=== PATIENT | male | born 2000 | race Caucasian/White ===

== ENCOUNTER 2022-10-29 05:33 | Observation (INO) | payer OTHER, SELFPAY ==
[2022-10-29] VITALS (7 sets, daily range): BP systolic 110–131; BP diastolic 68–75; PULSE 77–88; RESP 16; TEMP 36.7–37.1; O2SAT 96–98; BMI 25.1
--- NOTE | 2022-10-29 06:04 | PC.NURSE ---
Patient had [place] teeth removed september 30. 4 days ago started with pain and swelling to right side of dolores.
--- NOTE | 2022-10-29 06:25 | ED.DENTAL1 ---
HPI - Dental/Oral General Chief complaint: Dental/Oral Stated complaint: DENTAL PAIN Time Seen by Provider: 10/29/22 06:25 Source: patient Mode of arrival: walk-in Limitations: no limitations History of Present Illness HPI Narrative: removal multiple wisdom teeth beginning of September. Discharged home on Amoxicillin. States everything went well and he healed and was doing well. 3 days ago developed pain right lower molar area. Seen at Urgent care 3 days ago and started on Clindamycin. Continues to have pain and throbbing of his face and swelling. low grade fever last PM. Throbbing pain that he is able to receive some relief with Motrin Onset (ago): day(s) Severity: moderate Relieving factors: NSAIDs Exacerbating factors: chewing Associated symptoms: fever Related Data Home Medications Medication Instructions Recorded Confirmed amoxicillin 500 mg capsule mg 10/29/22 chlorhexidine gluconate 0.12 % 10/29/22 mouthwash clindamycin HCl 300 mg capsule mg 10/29/22 ibuprofen 800 mg tablet mg 10/29/22 Allergies Allergy/AdvReac Type Severity Reaction Status Date / Time cefaclor [From [facility]] Allergy Intermediate Rash Verified 10/29/22 05:56 Review of Systems ROS Status of ROS 10 or more systems reviewed and unremarkable except as noted in history and below Exam Constitutional: Vital Signs - 24 hr 10/29/22 05:48 Temperature 98.7 F Pulse Rate [Monito r] 88 Respiratory Rate 16 Blood Pressure [Ri ght Arm] 122/73 H Pulse Oximetry 96 Oxygen Delivery Me thod Room Air Common normals: no apparent distress General appearance: cooperative HENMT: Common normals: normocephalic Other: swelling right face and about right lower pos. molar Eye: Common normals: PERRL, EOMs intact bilaterally and conjunctivae normal Neck & C-Spine: Common normals: full ROM and no lymphadenopathy Chest: Common normals: inspection of chest normal Respiratory: Common normals: normal respiratory effort and clear to auscultation bilaterally Cardio: Common normals: regular rate and regular rhythm GI: Common normals: Normal to inspection, nondistended, normoactive bowel sounds present Extremity: Common normals: normal to inspection and no joint enlargement Neuro: Common normals: oriented x3, moves all extremities and no focal motor deficits Psych: Common normals: mental status grossly normal Skin: Common normals: no rashes or lesions noted and skin turgor normal Course Vital Signs Vital signs: Vital Signs Temperature 98.7 F 10/29/22 05:48 Pulse Rate 88 10/29/22 05:48 Respiratory Rate 16 10/29/22 05:48 Blood Pressure 122/73 H 10/29/22 05:48 Pulse Oximetry 96 10/29/22 05:48 Oxygen Delivery Method Room Air 10/29/22 05:48 Temperature 98.7 F 10/29/22 05:48 Pulse Rate 88 10/29/22 05:48 Respiratory Rate 16 10/29/22 05:48 Blood Pressure 122/73 H 10/29/22 05:48 Pulse Oximetry 96 10/29/22 05:48 Oxygen Delivery Method Room Air 10/29/22 05:48 MDM - Dental/Oral MDM Narrative Medical decision making narrative: patient arrives with dental abscess that is not improving after 3 days of oral clindamycin. he has swelling and throbbing pain of his right face. IV established along with labs and fluids. Unasyn ordered. care transferred to Dr Summers at [facility] of shift Discharge Plan Discharge Chief Complaint: Dental/Oral Clinical Impression: Abscess, dental Prescriptions / Home Meds: No Action amoxicillin 500 mg capsule clindamycin HCl 300 mg capsule ibuprofen 800 mg tablet chlorhexidine gluconate 0.12 % mouthwash Referrals: CHRISTINA FARMER [Primary Care Provider] - 1 week
--- NOTE | 2022-10-29 07:09 | CT_ITS ---
The [address] [address] Patient Name: GLORIA Charlette MORGAN MRN: [facility]:[id number] date: 2000 Sex: M Assigned Patient Location: ER Current Patient Location: ER Accession/Order Number: [id number] Exam Date: 10/29/2022 07:38 Report Date: 10/29/2022 07:59 At the request of: JENIFFER MATHIS Procedure: CT soft tissue neck w con EXAM: CT scan of the neck using 98 mL of IV iodinated contrast. Dose reduction technique used: Automated exposure control and/or adjustment of the mA and/or kV according to patient size and/or use of iterative reconstruction technique. REASON FOR EXAM: Right jaw swelling, dental abscess COMPARISON: None FINDINGS: Changes of recent bilateral posterior mandibular and maxillary molar extraction. Fluid collection measuring 2.4 x 0.8 cm in the soft tissues immediately superficial to the right mandible abutting the to the extraction site. Surrounding soft tissue swelling. No other fluid collection. No cervical lymphadenopathy. No abnormal soft tissue masses. Patent vascular structures in the neck. Remainder unremarkable. IMPRESSION: Small abscess and surrounding soft tissue infection adjacent to the right mandibular tooth extraction site. Electronically authenticated by: REBECCA CHAPMAN Date: 10/29/2022 07:59
[2022-10-29 07:14] LABS: Basophils Percent Auto 0.2 % (0.2-2.0); Eosinophils Absolute Auto 0.1 10^3/uL (0.0-0.7); Eosinophils Percent Auto 0.4 % (0.9-7.0); Hemoglobin 14.5 g/dL (14.0-18.0); Immature Granulocytes Abs Auto 0.04 10^3/uL (0.00-0.03); Immature Granulocytes Pct Auto 0.3 % (0.0-0.5); Lymphocytes Percent Auto 8.1 % (20.5-60.0); Mean Corpuscular HGB Conc 33.7 g/dL (29.9-35.2); Mean Corpuscular Hemoglobin 29.5 pg (25.9-34.0); Mean Corpuscular Volume 87.6 fL (80.0-94.0); Mean Platelet Volume 8.5 fL (9.5-13.5); Monocytes Absolute Auto 1.5 10^3/uL (0.3-0.8); Monocytes Percent Auto 12.1 % (1.7-12.0); Neutrophils Absolute Auto 9.7 10^3/uL (1.4-6.5); Neutrophils Percent Auto 78.9 % (43.0-75.0); Platelet Count 245 10^3/uL (150-450); Red Blood Count 4.91 10^6/uL (4.70-6.10); White Blood Count 12.2 10^3/uL (4.0-11.0)
[2022-10-29] MEDS: 0.9 % SODIUM CHLORIDE 1,000 ML 100 ML IV (07:19)
[2022-10-29 07:32] LABS: Alanine Aminotransferase 27 U/L (16-63); Albumin Level 3.6 g/dL (3.4-5.0); Alkaline Phosphatase 89 U/L (46-116); Anion Gap 13.2; Aspartate Amino Transferase 14 U/L (15-37); BUN Creatinine Ratio 16.7; Bilirubin Total 0.8 mg/dL (0.2-1.0); Calcium 8.9 mg/dL (8.5-10.1); Carbon Dioxide 26.9 mmol/L (21.0-32.0); Chloride 102 mmol/L (98-107); Estimated GFR (African America >60 (>=60); Estimated GFR (Non-African Ame >60 (>=60); Globulin 3.6 g/dL; Glucose 103 mg/dL (74-106); Potassium 4.1 mmol/L (3.5-5.1); Sodium 138 mmol/L (136-145); Total Protein 7.2 g/dL (6.4-8.2)
[2022-10-29] MEDS: AMPICILLIN SODIUM/SULBACTAM NA 3 GM in 0.9 % SODIUM CHLORIDE 100 ML IV ×3 (07:33→21:17)
[2022-10-29 07:34] LABS: Lactate/Lactic Acid 0.9 mmol/L (0.4-2.0)
--- NOTE | 2022-10-29 09:06 | ED_ITS ---
HPI - General Adult General Chief complaint: Dental/Oral Stated complaint: DENTAL PAIN Time Seen by Provider: 10/29/22 06:25 Source: patient Mode of arrival: walk-in Limitations: no limitations Related Data Home Medications Medication Instructions Recorded Confirmed chlorhexidine gluconate 0.12 % 10/29/22 mouthwash ibuprofen 800 mg tablet 800 mg PO Q8H PRN fever or pain 10/29/22 10/29/22 Previous Rx's Medication Instructions Recorded amoxicillin 500 mg capsule 1,000 mg PO BID #0 caps 10/30/22 amoxicillin 875 mg-potassium 1 tab PO BID take with the 10/30/22 clavulanate 125 mg tablet amoxicillin 2 tabs twice a day #20 tabs Allergies Allergy/AdvReac Type Severity Reaction Status Date / Time cefaclor [From [facility]] Allergy Intermediate Rash Verified 10/29/22 05:56 [facility] Medical History (Updated 11/03/22 @ 00:00 by ) Surgical History (Updated 10/29/22 @ 14:45 by Haley Samuel) Exam Constitutional Vital Signs - 24 hr 10/29/22 05:48 Temperature 98.7 F Pulse Rate [Monitor] 88 Respiratory Rate 16 Blood Pressure [Right Arm] 122/73 H Pulse Oximetry 96 Oxygen Delivery Method Room Air Course Reevaluation(s) Reevaluation #1: Signed out to me by Dr. Mathis awaiting CT scan results. Patient seen and evaluated by me. Patient had dental extractions september. He to one course of amoxicillin postoperatively. He was doing well and on developed swelling to his right mandible. Patient went to the urgent care and started taking clindamycin he has taken 5 doses of clindamycin 300 mg and today the facial swelling is much worse. Patient denies any difficulty swallowing. He was started on Unasyn per Dr. Mathis awaiting neck soft tissue CT. Patient was discussed with Dr. Rincon who will obs the pt continuous IV antibiotics as the patient has failed outpatient treatment. Vital Signs Vital signs: Vital Signs Temperature 98.7 F 10/29/22 05:48 Pulse Rate 88 10/29/22 05:48 Respiratory Rate 16 10/29/22 05:48 Blood Pressure 122/73 H 10/29/22 05:48 Pulse Oximetry 96 10/29/22 05:48 Oxygen Delivery Method Room Air 10/29/22 05:48 Temperature 98.1 F 10/30/22 04:22 Pulse Rate 69 10/30/22 04:22 Respiratory Rate 16 10/30/22 04:22 Blood Pressure 106/63 10/30/22 04:22 Pulse Oximetry 96 10/30/22 04:22 Oxygen Delivery Method Room Air 10/30/22 04:22 Medical Decision Making Lab Data Labs: Lab Results 10/29/22 Range/Units 07:05 WBC 12.2 H (4.0-11.0) 10^3/uL RBC 4.91 (4.70-6.10) 10^6/uL Hgb 14.5 (14.0-18.0) g/dL Hct 43.0 (42.0-54.0) % MCV 87.6 (80.0-94.0) fL MCH 29.5 (25.9-34.0) pg MCHC 33.7 (29.9-35.2) g/dL RDW 12.0 (11.0-15.0) % Plt Count 245 (150-450) 10^3/uL MPV 8.5 L (9.5-13.5) fL Neut % (Auto) 78.9 H (43.0-75.0) % Lymph % (Auto) 8.1 L (20.5-60.0) % [place] % (Auto) 12.1 H (1.7-12.0) % Eos % (Auto) 0.4 L (0.9-7.0) % Baso % (Auto) 0.2 (0.2-2.0) % Neut # (Auto) 9.7 H (1.4-6.5) 10^3/uL Lymph # (Auto) 1.0 L (1.2-3.8) 10^3/uL [place] # (Auto) 1.5 H (0.3-0.8) 10^3/uL Eos # (Auto) 0.1 (0.0-0.7) 10^3/uL Baso # (Auto) 0.0 (0.0-0.1) 10^3/uL Sodium 138 (136-145) mmol/L Potassium 4.1 (3.5-5.1) mmol/L Chloride 102 (98-107) mmol/L Carbon Dioxide 26.9 (21.0-32.0) mmol/L Anion Gap 13.2 BUN 17.0 (7.0-18.0) mg/dL Creatinine 1.02 (0.70-1.30) mg/dL Est GFR ( Amer) >60 (>=60) Est GFR (Non-Af Amer) >60 (>=60) BUN/Creatinine Ratio 16.7 Glucose 103 (74-106) mg/dL Lactate 0.9 (0.4-2.0) mmol/L Calcium 8.9 (8.5-10.1) mg/dL Total Bilirubin 0.8 (0.2-1.0) mg/dL AST 14 L (15-37) U/L ALT 27 (16-63) U/L Total Protein 7.2 (6.4-8.2) g/dL Albumin 3.6 (3.4-5.0) g/dL Globulin 3.6 g/dL Albumin/Globulin Ratio 1.[address] neck soft tissue: My impression: Patient Name: GLORIA Charlette MORGAN MRN: [id number] date: 2000 Sex: M Assigned Patient Location: ER Current Patient Location: Accession/Order Number: [id number] Exam Date: 10/29/2022 07:38 Report Date: 10/29/2022 07:59 At the request of: JENIFFER MATHIS Procedure: CT soft tissue neck w con EXAM: CT scan of the neck using 98 mL of IV iodinated contrast. Dose reduction technique used: Automated exposure control and/or adjustment of the mA and/or kV according to patient size and/or use of iterative reconstruction technique. REASON FOR EXAM: Right jaw swelling, dental abscess COMPARISON: None FINDINGS: Changes of recent bilateral posterior mandibular and maxillary molar extraction. Fluid collection measuring 2.4 x 0.8 cm in the soft tissues immediately superficial to the right mandible abutting the to the extraction site. Surrounding soft tissue swelling. No other fluid collection. No cervical lymphadenopathy. No abnormal soft tissue masses. Patent vascular structures in the neck. Remainder unremarkable. IMPRESSION: Small abscess and surrounding soft tissue infection adjacent to the right mandibular tooth extraction site. Electronically authenticated by: REBECCA CHAPMAN Date: 10/29/2022 07:59 Discharge Plan Discharge Chief Complaint: Dental/Oral Clinical Impression: Abscess, dental Patient Disposition: Admitted as Observation Time of Disposition Decision: 09:11 Condition: Good Discharge Date/Time: 10/29/22 10:35
[2022-10-29 14:28] LABS: Lactate/Lactic Acid 1.4 mmol/L (0.4-2.0)
[2022-10-29] MEDS: KETOROLAC TROMETHAMINE 30 MG/ML VIAL IVP ×2 (15:08→20:34)
--- NOTE | 2022-10-29 15:55 | PM.HP ---
H&P: HPI History of Present Illness Chief complaint: DENTAL PAIN Narrative: Patient admitted with increasing swelling of his jaw. Has been treated with amoxicillin and clindamycin without success. CT scan confirms small abscess. Not drainable on evaluation by the emergency staff. Admit for IV antibiotics. If improved tomorrow possible discharge. Has an appointment in 2 days with his dentist to remove the tooth Review of Systems ROS Constitutional Denies: fever or chills Ears, nose, mouth, and throat Reports: mouth pain; Denies: throat swelling, difficulty swallowing or hoarseness Respiratory Denies: shortness of breath, cough or wheezing Gastrointestinal Denies: abdominal pain Neurological Denies: headache PFSH PFSH Medical History (Updated 10/29/22 @ 15:58 by Naren Rincon MD) Surgical History (Updated 10/29/22 @ 14:45 by Haley Samuel) Meds Home Medications and Allergies Home Medications Medication Instructions Recorded Confirmed Type amoxicillin 500 mg capsule 500 mg PO Q8H 10/29/22 10/29/22 History chlorhexidine gluconate 0.12 % 10/29/22 History mouthwash clindamycin HCl 300 mg capsule 300 mg PO Q8H 10/29/22 10/29/22 History ibuprofen 800 mg tablet 800 mg PO Q8H PRN fever or pain 10/29/22 10/29/22 History Allergies Allergy/AdvReac Type Severity Reaction Status Date / Time cefaclor [From [facility]] Allergy Intermediate Rash Verified 10/29/22 05:56 Exam Constitutional Vital Signs - 24 hr 10/29/22 05:48 10/29/22 11:30 10/29/22 11:36 Temperature 98.7 F 98.6 F Pulse Rate Pulse Rate [Monitor] 88 83 Respiratory Rate 16 16 Blood Pressure [Right Arm] 122/73 H 131/75 H Pulse Oximetry 96 98 98 Oxygen Delivery Method Room Air Room Air Room Air 10/29/22 11:36 10/29/22 14:00 Temperature 98.0 F Pulse Rate 77 Pulse Rate [Monitor] Respiratory Rate 16 16 Blood Pressure [Right Arm] 118/74 Pulse Oximetry 98 Oxygen Delivery Method Room Air [facility] Mouth: oral and palatal mucosa not normal (Swelling to right side of jaw.) Respiratory Common normals: normal respiratory effort and no retractions Cardio Common normals: regular rate and regular rhythm Neuro Common normals: oriented x3 Results Labs Labs: Short CBC 10/29/22 Range/Units 07:05 WBC 12.2 H (4.0-11.0) 10^3/uL Hgb 14.5 (14.0-18.0) g/dL Hct 43.0 (42.0-54.0) % Plt Count 245 (150-450) 10^3/uL BMP 10/29/22 07:05 Sodium 138 Potassium 4.1 Chloride 102 Carbon Dioxide 26.9 BUN 17.0 Creatinine 1.02 Glucose 103 Calcium 8.9 Liver Function 10/29/22 Range/Units 07:05 Total Bilirubin 0.8 (0.2-1.0) mg/dL AST 14 L (15-37) U/L ALT 27 (16-63) U/L Albumin 3.6 (3.4-5.0) g/dL Assessment and Plan Assessment and Plan (1) Dental abscess: Plan IV antibiotics overnight. Repeat labs in AM. Blood cultures for fever.
[2022-10-29] MEDS: L. ACIDOPHILUS/L.BULGARICUS 1 PACKET GRAN.PACK PO (17:59)
--- NOTE | 2022-10-29 22:21 | PC.NURSE ---
fresh ice water provided.
[2022-10-30] MEDS: KETOROLAC TROMETHAMINE 30 MG/ML VIAL IVP ×2 (03:26→09:43)
[2022-10-30] MEDS: AMPICILLIN SODIUM/SULBACTAM NA 3 GM in 0.9 % SODIUM CHLORIDE 100 ML IV ×2 (03:26→09:44)
--- NOTE | 2022-10-30 03:33 | PC.NURSE ---
Rt facial abscess noted with decrease swelling, and temp WNL.
[2022-10-30 04:22] VITALS: BP 106/63; PULSE 69; RESP 16; TEMP 36.7; O2SAT 96
[2022-10-30 04:42] LABS: Basophils Percent Auto 0.6 % (0.2-2.0); Eosinophils Absolute Auto 0.3 10^3/uL (0.0-0.7); Eosinophils Percent Auto 3.6 % (0.9-7.0); Hematocrit 39.8 % (42.0-54.0); Hemoglobin 13.5 g/dL (14.0-18.0); Immature Granulocytes Abs Auto 0.02 10^3/uL (0.00-0.03); Immature Granulocytes Pct Auto 0.3 % (0.0-0.5); Lymphocytes Absolute Auto 1.1 10^3/uL (1.2-3.8); Mean Corpuscular HGB Conc 33.9 g/dL (29.9-35.2); Mean Corpuscular Hemoglobin 30.1 pg (25.9-34.0); Mean Corpuscular Volume 88.6 fL (80.0-94.0); Mean Platelet Volume 8.7 fL (9.5-13.5); Monocytes Absolute Auto 0.7 10^3/uL (0.3-0.8); Monocytes Percent Auto 9.7 % (1.7-12.0); Neutrophils Absolute Auto 5.1 10^3/uL (1.4-6.5); Neutrophils Percent Auto 70.8 % (43.0-75.0); Platelet Count 237 10^3/uL (150-450); Red Blood Count 4.49 10^6/uL (4.70-6.10); Red Cell Distribution Width 12.1 % (11.0-15.0); White Blood Count 7.2 10^3/uL (4.0-11.0)
[2022-10-30 04:52] LABS: Alanine Aminotransferase 24 U/L (16-63); Albumin Globulin Ratio 0.9; Albumin Level 2.8 g/dL (3.4-5.0); Alkaline Phosphatase 75 U/L (46-116); Anion Gap 9.1; Aspartate Amino Transferase 19 U/L (15-37); BUN Creatinine Ratio 17.8; Bilirubin Total 0.2 mg/dL (0.2-1.0); Calcium 8.5 mg/dL (8.5-10.1); Carbon Dioxide 27.8 mmol/L (21.0-32.0); Chloride 102 mmol/L (98-107); Estimated GFR (African America >60 (>=60); Estimated GFR (Non-African Ame >60 (>=60); Globulin 3.2 g/dL; Glucose 157 mg/dL (74-106); Potassium 3.9 mmol/L (3.5-5.1); Sodium 135 mmol/L (136-145)
[2022-10-30] MEDS: L. ACIDOPHILUS/L.BULGARICUS 1 PACKET GRAN.PACK PO (09:44)
--- NOTE | 2022-10-30 09:55 | PM.DS1 ---
DS: Providers Provider Date of admission: 10/29/22 11:07 Primary care physician: CHRISTINA FARMER Consults: 10/29/22 Consult to Director Of Labor And Delivery Routine DS: Diagnosis Discharge Diagnosis (1) Dental abscess: Assessment and plan: Right-sided jaw abscess-we will follow-up with commissary manager tomorrow for possible drainage DS: Summary Hospital Course Hospital Course: Patient was admitted with failed outpatient treatment of oral-jaw abscess. Initially treated with amoxicillin 500 3 times daily. Patient became worse and presented to urgent care with a change to clindamycin. Over the next 36 to 48 hours patient again continued to deteriorate. With increasing swelling and pain. ER evaluations for 3 cm jaw abscess. Right-sided. Treated with IV antibiotics to be Unasyn. Tolerated the Unasyn well. White blood cell count is returned to normal after being elevated on admission. Pain and swelling is improving. At this point we will discharge patient to home on high-dose Augmentin. Follow-up with oral surgeon tomorrow. Status at Discharge Functional status at discharge: independent ambulation Overall status at discharge: patient is progressing back to baseline Time Spent with Patient Time attestation: Total time spent providing and/or coordinating discharge services: Exam Constitutional Vital Signs - 24 hr 10/29/22 11:30 10/29/22 11:36 10/29/22 11:36 Temperature 98.6 F Pulse Rate Pulse Rate [Monitor] 83 Respiratory Rate 16 16 Blood Pressure [Right Arm] 131/75 H Pulse Oximetry 98 98 Oxygen Delivery Method Room Air Room Air 10/29/22 14:00 10/29/22 16:03 10/29/22 19:40 Temperature 98.0 F Pulse Rate 77 Pulse Rate [Monitor] Respiratory Rate 16 Blood Pressure [Right Arm] 118/74 Pulse Oximetry 98 98 98 Oxygen Delivery Method Room Air Room Air Room Air 10/29/22 21:10 10/30/22 04:22 Temperature 98.0 F 98.1 F Pulse Rate 84 69 Pulse Rate [Monitor] Respiratory Rate 16 16 Blood Pressure [Right Arm] 110/68 106/63 Pulse Oximetry 96 96 Oxygen Delivery Method Room Air Room Air [facility] Common normals: normocephalic (Right-sided upper and lower jaw swelling. Some tenderness down into neck) Head and scalp: normal to inspection Respiratory Common normals: normal respiratory effort and no retractions Cardio Palpation: normal PMI Rate: regular rate Rhythm: regular rhythm DS: Data Data Completed and Pending Labs on day of discharge: Labs from last 24 hours 10/30/22 10/29/22 04:08 13:52 WBC 7.2 RBC 4.49 L Hgb 13.5 L Hct 39.8 L MCV 88.6 MCH 30.1 MCHC 33.9 RDW 12.1 Plt Count 237 MPV 8.7 L Neut % (Auto) 70.8 Lymph % (Auto) 15.0 L [place] % (Auto) 9.7 Eos % (Auto) 3.6 Baso % (Auto) 0.6 Neut # (Auto) 5.1 Lymph # (Auto) 1.1 L [place] # (Auto) 0.7 Eos # (Auto) 0.3 Baso # (Auto) 0.0 Sodium 135 L Potassium 3.9 Chloride 102 Carbon Dioxide 27.8 Anion Gap 9.1 BUN 18.0 Creatinine 1.01 Est GFR ( Amer) >60 Est GFR (Non-Af Amer) >60 BUN/Creatinine Ratio 17.8 Glucose 157 H Lactate 1.4 Calcium 8.5 Total Bilirubin 0.2 AST 19 ALT 24 Total Protein 6.0 L Albumin 2.8 L Globulin 3.2 Albumin/Globulin Ratio 0.9 Discharge Plan Discharge Disposition: Home, Self-Care Condition: Good Discharge Medications: New amoxicillin-pot clavulanate 875-125 mg tablet 1 tab PO BID Qty: 20 0RF Rx Instructions: take with the amoxicillin 2 tabs twice a day Continued ibuprofen 800 mg tablet 800 mg PO Q8H PRN (Reason: fever or pain) chlorhexidine gluconate 0.12 % mouthwash Changed amoxicillin 500 mg capsule 1,000 mg PO BID Qty: 0 0RF Discontinued clindamycin HCl 300 mg capsule 300 mg PO Q8H Activity: increase activity as tolerated Diet: advance to your usual diet Patient Instructions: Ibuprofen (By mouth), Amoxicillin/Clavulanate Potassium (By mouth), Amoxicillin (By mouth), Dental Abscess (ED) Forms: Portal Instructions Follow Up Appointments: Oral surgeon Monday keep appointment Discharge Date/Time: 10/30/22 10:57
--- NOTE | 2022-10-31 16:19 | CM.DCFOLLOWU ---
Person spoke with: patient How are you feeling? good How is your pain? less pain Did you understand your discharge instructions? yes Do you have any questions about your discharge instructions? no Were you given any prescriptions at discharge? yes Were you able to get your prescriptions filled? yes Do you understand how to take your medications as ordered? yes Do you have any questions about your follow up appointment and do you plan to keep your follow up appointment? yes Is there anything else that you would like to discuss? no Questions/Comments/Concerns/Other:
== END 2022-10-30 10:57 | disposition home or self-care (01) ==
LOC: ER 09:11 → MS 11:09
PROVIDERS: Admitting Provider Family Medicine; Emergency Provider Internal Medicine; PCP Family Medicine; Visit Provider Family Medicine
DX: K04.7 Periapical abscess without sinus (principal)
CPT/HCPCS: 36415; 70491; 80053; 83605; 85025; 94761; 96365; 96375; 96376; 99285; G0378; Q9967